=== PATIENT | female | born 1985 | race Caucasian/White ===

== ENCOUNTER 2020-04-17 09:21 | Emergency (ER) | payer OTHER, SELFPAY ==
[~2020-04-17] VITALS: Ht 177.8 cm; Wt 82.3 kg
[2020-04-17] MEDS ORDERED: LO LTAB PO (09:34)
[2020-04-17] MEDS ORDERED: VITACAP8 PO (09:34)
[2020-04-17] MEDS ORDERED: MULTTAB24 PO (09:34)
[2020-04-17 10:24] LABS: BASO % 0.5 % (0.0-1.0); EOS # 0.1 10^3/uL (0.0-0.5); EOS % 1.6 % (0.0-3.0); HEMATOCRIT 46.5 % (36.0-47.0); LYMPH # 2.5 10^3/uL (1.5-5.0); LYMPH % 30.8 % (24.0-44.0); MEAN CORPUSCULAR HEMOGLOBIN 30.1 pg (27.0-33.0); MEAN CORPUSCULAR HGB CONC 32.3 g/dl (32.0-36.5); MEAN CORPUSCULAR VOLUME 93.4 fl (80.0-96.0); MONO # 0.8 10^3/uL (0.0-0.8); MONO % 9.9 % (0.0-5.0); NEUTROPHILS # 4.6 10^3/uL (1.5-8.5); NEUTROPHILS % 56.8 % (36.0-66.0); PLATELET COUNT, AUTOMATED 311 10^3/uL (150-450); RED BLOOD COUNT 4.98 10^6/uL (4.00-5.40); WHITE BLOOD COUNT 8.2 10^3/uL (4.0-10.0)
[2020-04-17 10:37] LABS: INR 0.92; PROTHROMBIN TIME 12.6 SECONDS (12.5-14.3)
[2020-04-17 10:38] LABS: PARTIAL THROMBOPLASTIN TIME 27.5 SECONDS (24.2-38.5)
[2020-04-17 10:54] LABS: HCG, SERUM QUALITATIVE NEGATIVE (NEGATIVE)
[2020-04-17 10:56] LABS: BLOOD UREA NITROGEN 14 MG/DL (7-18); CALCIUM LEVEL 9.4 MG/DL (8.5-10.1); CARBON DIOXIDE LEVEL 27 MEQ/L (21-32); CHLORIDE LEVEL 105 MEQ/L (98-107); CK-MB VALUE MASS 1.2 NG/ML (<3.6); CPK CREATINE PHOSPHOKINASE 113 U/L (26-192); FREE T4 1.14 NG/DL (0.76-1.46); GLOMERULAR FILTRATION RATE > 60.0 (>60); GLUCOSE, FASTING 75 MG/DL (70-100); MB/CK RELATIVE INDEX 1.06 (< OR =4); NT-PRO BNP 36 PG/ML (<125); POTASSIUM SERUM 4.1 MEQ/L (3.5-5.1); SODIUM LEVEL 139 MEQ/L (136-145); TROPONIN I 0.03 NG/ML (< 0.10)
[2020-04-17 11:22] LABS: D-DIMER QUANT < 270.0 ng/ml (<500)
--- NOTE | 2020-04-17 11:38 | REP ---
INDICATION: CHEST PAIN. COMPARISON: None. TECHNIQUE: Sitting AP portable radiograph. FINDINGS: Monitoring electrodes are seen. The lungs are well inflated and clear. The pleural angles are sharp. Heart size is normal. Pulmonary vasculature is not increased. No significant bony abnormality. IMPRESSION: Negative portable chest x-ray. <Electronically signed by Suleiman Kern > 04/17/20 [id number]
[2020-04-17 12:54] VITALS: BP 122/82
--- NOTE | 2020-04-18 08:37 | ECGEPIP ---
[facility] - ED Test Date: 2020-04-17 Pat Name: YOLIE GARZA Department: Room: - Gender: Female Physician Office Rep: : [id number] Requested By: Nila Orellana Order Number: [id number] Reading MD: Nila Orellana Measurements Intervals [place] Rate: 67 P: 52 IL: 168 QRS: 47 QRSD: 82 T: 2 QT: 393 QTc: 415 Interpretive Statements SINUS RHYTHM WITH MARKED SINUS ARRHYTHMIA NSTTW abnormalities No prior Electronically Signed on 04-18-2020 8:37:00 EST by Nila Orellana
== END 2020-04-17 13:02 | disposition home or self-care (01) ==
LOC: M ED 09:21
DX: R00.2 Palpitations (principal); Z79.3 Long term (current) use of hormonal contraceptives; Z91.048 Other nonmedicinal substance allergy status; Z98.890 Other specified postprocedural states

== ENCOUNTER 2021-08-11 05:59 | Day surgery (SDC) | payer OTHER ==
[~2021-08-11] VITALS: Ht 177.8 cm; Wt 89.4 kg
[~2021-08-11 05:59] MED LIST: FISH1000 PO; LO LTAB PO; MUCI600T31 PO; MULTTAB24 PO; RA N1TAB PO; VITACAP8 PO
[2021-08-11] MEDS ORDERED: LR 1,000 ML IV ONE (06:00)
[2021-08-11] MEDS ORDERED: ACETAMINOPHEN 500 MG TAB PO ONE (06:00)
[2021-08-11] MEDS ORDERED: IBUP-1022 PO (06:48)
[2021-08-11] MEDS ORDERED: ACET-897 PO (06:48)
[2021-08-11 06:59] LABS: HEMOGLOBIN 14.4 g/dl (12.0-15.5); MEAN CORPUSCULAR HEMOGLOBIN 29.8 pg (27.0-33.0); MEAN CORPUSCULAR HGB CONC 32.7 g/dl (32.0-36.5); MEAN CORPUSCULAR VOLUME 90.9 fl (80.0-96.0); PLATELET COUNT, AUTOMATED 302 10^3/uL (150-450); RED BLOOD COUNT 4.84 10^6/uL (4.00-5.40); WHITE BLOOD COUNT 10.8 10^3/uL (4.0-10.0)
[2021-08-11] MEDS ORDERED: propofoL 200 MG/20 ML VIAL As Ordered ONE (07:04)
[2021-08-11] MEDS ORDERED: ONDANSETRON 4MG/2ML VIAL As Ordered ONE (07:04)
[2021-08-11] MEDS ORDERED: dexameTHASONE 4 MG/ML 1ML VIAL (J1100 PER 1MG) As Ordered ONE (07:04)
[2021-08-11] MEDS ORDERED: ROCURONIUM BROMIDE 50 MG/5 ML VIAL As Ordered ONE (07:04)
[2021-08-11] MEDS ORDERED: LIDOCAINE 2% 100MG/5ML SDV (FOR ANES.) As Ordered ONE (07:04)
[2021-08-11] MEDS ORDERED: MIDAZOLAM INJ 2MG/2ML VIAL (J2250 PER 1MG) As Ordered ONE (07:06)
[2021-08-11] MEDS ORDERED: fentaNYL 100 MCG/2 ML INJECTION As Ordered ONE ×2 (07:07→07:47)
[2021-08-11] MEDS ORDERED: BUPIVACAINE HCL 0.25% 30ML VIAL As Ordered ONE (07:14)
[2021-08-11] MEDS ORDERED: SUGAMMADEX SODIUM 500 MG/5 ML VIAL (BRIDION) As Ordered ONE (07:54)
[2021-08-11] MEDS ORDERED: KETOROLAC 60MG 2ML VIAL As Ordered ONE (07:54)
[2021-08-11] MEDS ORDERED: LR 1,000 ML IV SCH ×2 (08:55→09:00)
[2021-08-11] MEDS ORDERED: ONDANSETRON 4MG/2ML VIAL IV PRN (08:55)
[2021-08-11] MEDS ORDERED: fentaNYL 100 MCG/2 ML INJECTION IV PRN (08:55)
[2021-08-11] MEDS ORDERED: HYDROMORPHONE HCL 0.5 MG/ 0.5 ML SYRINGE (J1170 PER 1) IV PRN (08:55)
[2021-08-11] MEDS ORDERED: oxyCODONE 5MG TAB PO PRN (08:55)
[2021-08-11] MEDS ORDERED: METOCLOPRAMIDE INJ 10MG/2ML VIAL (J2765 PER 1) IV PRN (09:10)
[2021-08-11 10:25] VITALS: BP 137/80
== END 2021-08-11 10:58 | disposition home or self-care (01) ==
LOC: M SDC 05:59
PROVIDERS: ATTEND Obstetrics & Gynecology
DX: Z30.2 Encounter for sterilization (principal); G43.109 Migraine with aura, not intractable, without status migrainosus; E16.2 Hypoglycemia, unspecified; R09.81 Nasal congestion; Z88.8 Allergy status to other drugs, medicaments and biological substances
CPT/HCPCS: 36415; 58661; 81025; 85027; 86850; 86900; 86901; 88302; J1100; J1885; J2250; J2405; J2765; J3010